=== PATIENT | female | born 1995 | race Two or more races ===

== ENCOUNTER 2020-11-29 05:10 | Outpatient (CLI) | payer OTHER | END 2020-11-29 10:19 | disposition home or self-care (01) | LOC: OBS/DEL 05:10 | PROVIDERS: ATTEND Obstetrics & Gynecology | DX: O99.342 Other mental disorders complicating pregnancy, second trimester (principal); F41.8 Other specified anxiety disorders; O26.893 Other specified pregnancy related conditions, third trimester; G47.09 Other insomnia ==

== ENCOUNTER 2021-01-14 14:31 | Outpatient (CLI) | payer OTHER ==
[2021-01-14] MEDS ORDERED: PRENATAL TABLE1 EAC1 PO (14:49)
== END 2021-01-15 13:26 | disposition home or self-care (01) ==
LOC: OBS/DEL 14:31
PROVIDERS: ATTEND Obstetrics & Gynecology
DX: O21.8 Other vomiting complicating pregnancy (principal); Z3A.34 34 weeks gestation of pregnancy

== ENCOUNTER 2021-02-10 15:00 | Inpatient (IN) | payer OTHER ==
[~2021-02-10] VITALS: Ht 162.6 cm; Wt 95.7 kg
[~2021-02-10 15:00] MED LIST: PRENATAL TABLE1 EAC1 PO
== END 2021-02-25 12:31 | disposition home or self-care (01) | DRG 807 ==
LOC: LDR 02-23 06:21 → OB/GYN 02-23 16:56
PROVIDERS: ADMIT Obstetrics & Gynecology; ATTEND Obstetrics & Gynecology
PROC: 10E0XZZ Delivery of Products of Conception, External Approach (ICD-10-PCS; principal; 2021-02-23)
PROC: 10907ZC Drainage of Amniotic Fluid, Therapeutic from Products of Conception, Via Natural or Artificial Opening (ICD-10-PCS; 2021-02-23)
PROC: 4A1HXFZ Monitoring of Products of Conception, Cardiac Rhythm, External Approach (ICD-10-PCS; 2021-02-23)
DX: O80 Encounter for full-term uncomplicated delivery (principal); Z37.0 Single live birth; Z3A.39 39 weeks gestation of pregnancy; Z20.822 Contact with and (suspected) exposure to COVID-19